=== PATIENT | male | born 2000 | race American Indian/Alaskan Native ===

== ENCOUNTER 2020-06-05 22:56 | Emergency (ER) | payer SELFPAY ==
--- NOTE | 2020-06-06 00:48 | XRay Report ---
CHEST 2 VIEWS INDICATION / CLINICAL INFORMATION: cough. FINDINGS: SUPPORT DEVICES: None. HEART / MEDIASTINUM: No significant abnormality. LUNGS / PLEURA: No significant pulmonary or pleural abnormality. No pneumothorax. ADDITIONAL FINDINGS: No significant additional findings. IMPRESSION: 1. No acute findings. Signer Name: Ha Mchugh MD Signed: 06/06/2020 12:43 AM Workstation Name: [id number]
[2020-06-06] MEDS ORDERED: IPRATROPIUM/ALBUTEROL SULFATE 3 ML AMPUL.NEB IH ONE (01:04)
[2020-06-06] MEDS ORDERED: dexAMETHasone 4 MG/ML VIAL IM ONE (01:04)
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
[2020-06-06] MEDS ORDERED: ACETAMINOPHEN 325 MG TAB ONE (02:04)
[2020-06-06] MEDS ORDERED: ACETAMINOPHEN 325 MG TAB PO ONE (02:05)
[2020-06-06 03:38] VITALS: BP 127/78
== END 2020-06-06 02:45 | disposition home or self-care (01) ==
LOC: ED 22:56
DX: R05 Cough (principal); R06.02 Shortness of breath; J45.909 Unspecified asthma, uncomplicated; Z21 Asymptomatic human immunodeficiency virus [HIV] infection status; Z79.899 Other long term (current) drug therapy
CPT/HCPCS: 71046; 94640; 96372; 99284; J1100; 94644